=== PATIENT | male | born 1960 | race Caucasian/White ===

== ENCOUNTER 2016-04-08 11:15 | Outpatient (RCR) | payer BC, OTHER ==
--- NOTE | 2016-03-01 10:49 | PT/OT/ST INITIAL EVALUATION ---
[facility], [facility]. PHYSICAL/OCCUPATIONAL THERAPY [address] [place] [id number] PLAN OF CARE/ASSESSMENT FOR OUTPATIENT REHABILITATION (Complete for Initial Claims Only) 1. PATIENT'S NAME Jim Currie 2. ACC. No [id number] 3. PRIMARY DX Myotonic dystrophy 4. SECONDARY DX Right levator scapula muscle pain 5. ONSET DATE 1-1/2 years ago 6. REFERRAL DATE 02/18/2016 7. SOC. DATE/TIME 02/22/2016 07:15 8. PRIOR LEVEL OF FUNCTION; PERTINENT HISTORY (Prior therapy results, reason for referral.) S: The patient was referred to physical therapy by Dr. Sabrina Sandoval with [facility] in [place]. The patient reports that he has been having pain at his right side of his neck and into his shoulder blade for approximately 1-1/2 years. The patient notes the symptoms are worse later in the day. Feels like his right side fatigues quicker than his left. Occupational and social history: The patient is a [employer] for [employer]. Overall health rating: Rates overall health as fair. Current pain rating is 5/10. Diagnostic tests: The patient did undergo EMG study. Past medical history includes left shoulder separation 1978 and gallbladder removal. Medication: None 9. INITIAL ASSESSMENT/SAFETY PRECAUTIONS/MEDICAL COMPLICATIONS (Level of function at start of care. Be specific, use objective measures, list problems.) O: APPEARANCE: The patient is a 55-year-old male. He demonstrates slight forward head posture and mildly rounded shoulders. Head slightly deviated to the right. PALPATION: The patient has tenderness to palpation at his right levator scapular muscle belly insertion, as well as his posterior shoulder. Mild tenderness noted along his right upper trap. RANGE OF MOTION/FLEXIBILITY: Right shoulder active flexion 144 degrees, abduction 170 degrees. Left shoulder active flexion 156 degrees, abduction 156 degrees. Passive range of motion right shoulder flexion 158 degrees, abduction 171 degrees. External rotation 105 degrees and internal rotation 30 degrees. Left shoulder passive range of motion 158, 166, 85, and 50 degrees respectively. STRENGTH: The patient demonstrated 4+5 manual muscle test with scaption and external rotation on the right. All other motions were 5/5 manual muscle test on both the right and left side. TODAY'S TREATMENT: Included initial evaluation followed by ultrasound and electric stim combination to right levator scapular muscle belly insertion. Gentle manual stretching was then performed to the patient's neck and the patient was instructed on a home exercise program for gentle flexibility exercises. 10. INITIAL POC: (Specify procedures, modalities, short and exterminator goals) A: The patient demonstrates right levator scapular muscle belly tightness and pain. PROGNOSIS: The patient is a good candidate for physical therapy to help manage pain and progress with general flexibility. GOALS: 1. The patient to be compliant with home exercise program in 1 week. 2. The patient to report 50% decrease muscle tension and tightness at his right neck and shoulder region in 4 weeks. 3. The patient to demonstrate full resistance strength at right shoulder without pain 4 weeks. 4. The patient to report that he is able to perform normal daily activities with a pain rating of 0 to 1/10 in 6 weeks. PLAN: The patient will be seen 2 times a week over the next 6 weeks. Treatment to include modalities and manual therapy to decrease muscle tension and tightness. We will progress the patient with range of motion, flexibility, stabilization, and light strengthening activities as tolerated. 11. PHYSICIAN SIGNATURE ? ON FILE OR ENTER HERE: 12. DATE: I certify the need for these services furnished under this plan of care and if for partial hospitalization. 13. CERTIFICATION FROM THROUGH
[~2016-04-08 11:15] MED LIST: AMOX875T2 PO; NO HOME MEDICATIONS
== END 2016-04-14 09:06 | disposition home or self-care (01) ==
LOC: PT 11:15
PROVIDERS: ATTEND Psychiatry & Neurology Neuromuscular Medicine
DX: G71.11 Myotonic muscular dystrophy (principal); M79.1 Myalgia